=== PATIENT | female | born 1975 ===

== ENCOUNTER 2024-03-15 11:00 | Inpatient (IN) | payer OTHER ==
[~2024-03-15] VITALS: Ht 231.1 cm; Wt 72.6 kg
[2024-03-22 07:29] LABS: HEMATOCRIT 39.5 % (36.0-45.00); HEMOGLOBIN 13.1 g/dL (12.0-15.00); MEAN CELL VOLUME 86.7 fL (80.00-100.00); MEAN CORPUSCULAR HEMOGLOBIN 28.7 pg (27.00-32.0); MEAN CORPUSCULAR HGB CONC 33.1 g/dl (32.0-36.0); PH,URINE 5.5 (5.0-8.0); PLATELET COUNT 309 K/uL (150-450); RED BLOOD COUNT 4.56 M/uL (4.00-6.00); RED CELL DISTRIBUTION WIDTH 14.1 % (11.5-14.5); URINE APPEARANCE Clear; URINE BILIRRUBIN Negative (NEGATIVE); URINE BLOOD Negative; URINE COLOR Yellow; URINE GLUCOSE Negative (NEGATIVE); URINE KETONE Negative (NEGATIVE); URINE LEUKOCYTE Negative; URINE NITRATE Negative; URINE PROTEIN Negative (NEGATIVE); URINE UROBILINOGEN 0.2 E.U./dl
[2024-03-22 07:44] VITALS: BP 124/66
[2024-03-22 07:47] VITALS: BP 114/78
[2024-03-22 07:50] LABS: URINE BACTERIA 99.1 uL (0.0-1933); URINE EPITHELIAL CELLS 11.3 uL (0.0-38.8)
[2024-03-22 07:53] LABS: PARTIAL THROMBOPLASTIN TIME 25.8 SECONDS (22.0-34.0); PROTHROMBIN TIME 10.9 SECONDS (9.0-11.5)
[2024-03-22 08:18] LABS: URINE RBC 1.9 uL (0.0-20.8); URINE WBC 1.2 uL (0.0-23.2)
[2024-03-22 09:03] LABS: ALBUMIN 3.8 gm/dL (3.4-5.0); BILIRUBIN TOTAL 0.74 mg/dL (0.3-1.2); CALCIUM 9.2 mg/dL (8.5-10.1); CREATININE SERUM 0.77 mg/dL (0.55-1.02); GFR 80.7; GLOBULINA 3.1 G/DL (2.4-3.5); POTASSIUM 4.45 mEq/L (3.5-5.1); TOTAL PROTEIN 6.9 gm/dL (6.4-8.2)
[2024-03-22 10:00] LABS: RH POSITIVE
[2024-03-30] MEDS ORDERED: CEFOXITIN SODIUM 2,000 MG VIAL IV ONE (19:15)
[2024-03-30] MEDS ORDERED: POVIDONE-IODINE 118 ML BOTT TOP ONE (19:15)
[2024-03-30] MEDS ORDERED: PROMETHAZINE HCL 25 MG/ML AMPUL IM PRN (21:00)
[2024-03-30] MEDS ORDERED: RINGERS SOLUTION,LACTATED 1,000 ML IV SCH (21:00)
[2024-03-30] MEDS ORDERED: MEPERIDINE HCL/PF 50 MG/ML VIAL IM PRN (21:00)
[2024-03-30] MEDS ORDERED: MORPHINE SULFATE 4 MG/ML VIAL IV ONE ×2 (21:30→22:00)
[2024-03-31] MEDS ORDERED: OxyCODONE HCL/APAP UD (PERCOCET) PO PRN
[2024-03-31 00:32] VITALS: BP 114/78
[2024-03-31 00:42] VITALS: BP 114/78
[2024-03-31 01:00] LABS: HEMATOCRIT 36.6 % (36.0-45.00); HEMOGLOBIN 12.1 g/dL (12.0-15.00); MEAN CELL VOLUME 85.4 fL (80.00-100.00); MEAN CORPUSCULAR HEMOGLOBIN 28.3 pg (27.00-32.0); MEAN CORPUSCULAR HGB CONC 33.2 g/dl (32.0-36.0); PLATELET COUNT 277 K/uL (150-450); RED BLOOD COUNT 4.28 M/uL (4.00-6.00); RED CELL DISTRIBUTION WIDTH 13.7 % (11.5-14.5)
[2024-03-31 11:04] VITALS: BP 126/86
[2024-03-31 16:07] VITALS: BP 120/76
[2024-04-01 01:13] VITALS: BP 102/66
[2024-04-01 08:00] VITALS: BP 112/75
[2024-04-01 11:47] VITALS: BP 149/88; O2SAT 98
[2024-04-01 16:00] VITALS: BP 116/77
[2024-04-02 01:20] VITALS: BP 126/84
[2024-04-02 08:44] VITALS: BP 107/76
== END 2024-04-02 11:21 | disposition home or self-care (01) | DRG 743 ==
LOC: OB/GYN 03-24 08:15 → O/R 03-30 11:11 → OB/GYN 03-30 21:44
PROVIDERS: ADMIT Obstetrics & Gynecology; ATTEND Obstetrics & Gynecology
PROC: 0UT70ZZ Resection of Bilateral Fallopian Tubes, Open Approach (ICD-10-PCS; 2024-03-30)
PROC: 0UB10ZZ Excision of Left Ovary, Open Approach (ICD-10-PCS; 2024-03-30)
PROC: 0UT90ZZ Resection of Uterus, Open Approach (ICD-10-PCS; principal; 2024-03-30 10:00)
DX: D25.0 Submucous leiomyoma of uterus (principal); D25.1 Intramural leiomyoma of uterus; N84.0 Polyp of corpus uteri; N80.03 Adenomyosis of the uterus; D27.1 Benign neoplasm of left ovary; Z20.822 Contact with and (suspected) exposure to COVID-19